=== PATIENT | female | born 1930 | race African-American/Black ===

== ENCOUNTER 2018-08-18 11:05 | Inpatient (IN) | payer MEDICARE, MEDICAID ==
[~2018-08-18] VITALS: Ht 167.6 cm; Wt 87.1 kg
[2018-08-18 14:12] LABS: BASOPHILS % 0.9 % (0.0-2.0); EOSINOPHILS % 0.4 % (0.0-5.0); HEMATOCRIT. 45.9 % (42.0-52.0); HEMOGLOBIN. 15.1 g/dL (14.0-18.0); LYMPHOCYTES % 19.3 % (20.0-50.0); MEAN CORPUSCULAR HEMOGLOBIN 29.3 pg (28.0-32.0); MEAN CORPUSCULAR VOLUME 89.5 fL (80.0-94.0); NEUTROPHILS % 74.4 % (40.0-76.0); PLATELET 224 x1000/uL (130-400); RED BLOOD CELL COUNT 5.13 mill/uL (4.7-6.1); RED CELL DISTRIBUTION WIDTH 13.7 % (11.6-14.6)
[2018-08-18 14:21] LABS: CHLORIDE 106 mEq/L (98-107)
[2018-08-18] MEDS ORDERED: GUAIFENESIN 200MG/10ML SUGAR FREE UDC PO PRN (18:00)
[2018-08-18] MEDS ORDERED: DOCUSATE SODIUM 100MG CAPSULE PO PRN (18:00)
[2018-08-18] MEDS ORDERED: CLONIDINE 0.1MG TABLET PO PRN (18:00)
[2018-08-18] MEDS ORDERED: ACETAMINOPHEN 325MG TABLET PO PRN (18:00)
[2018-08-18] MEDS ORDERED: ONDANSETRON HCL 4MG/2ML INJ IV PRN (18:00)
[2018-08-18] MEDS ORDERED: HYDROCODONE/ACETAMINOPHEN 5/325MG TABLET PO PRN (18:00)
[2018-08-18] MEDS ORDERED: MAGNESIUM/ALUMINUM HYDROXIDE/SIMETHICONE 30ML UDC PO PRN (18:00)
[2018-08-18 20:00] VITALS: BP 129/64
[2018-08-18] MEDS: ENOXAPARIN 30MG/0.3ML SYR SUBCUT SCH (21:00)
[2018-08-18 23:46] LABS: CREATINE KINASE 136 IU/L (39-308)
[2018-08-18 23:47] LABS: CREATINE KINASE MB FRACTION 2.5 ng/mL (0.5-3.6)
[2018-08-19] VITALS (7 sets, daily range): BP systolic 116–153; BP diastolic 45–84
[2018-08-19 06:33] LABS: BASOPHILS % 0.9 % (0.0-2.0); EOSINOPHILS % 1.3 % (0.0-5.0); LYMPHOCYTES % 36.9 % (20.0-50.0); MEAN CORPUSCULAR HEMOGLOBIN 29.6 pg (28.0-32.0); MEAN PLATELET VOLUME 9.1 fl (7.4-10.4); MONOCYTES % 8.7 % (2.0-8.0); NEUTROPHILS % 52.2 % (40.0-76.0); PLATELET 206 x1000/uL (130-400); RED BLOOD CELL COUNT 4.72 mill/uL (4.7-6.1); RED CELL DISTRIBUTION WIDTH 13.9 % (11.6-14.6)
[2018-08-19 06:59] LABS: CHLORIDE 108 mEq/L (98-107)
[2018-08-19 07:10] LABS: CREATINE KINASE 122 IU/L (26-192); HDL CHOLESTEROL 58 mg/dL (40-59)
[2018-08-19 07:11] LABS: LDL CHOLESTEROL 70 mg/dL (5-100)
[2018-08-19] MEDS: AMLODIPINE 10MG TABLET PO SCH (09:51)
[2018-08-19] MEDS: ENOXAPARIN 30MG/0.3ML SYR SUBCUT SCH ×2 (09:51→20:44)
[2018-08-19] MEDS ORDERED: DEXTROSE 50% WATER 50ML SYRINGE IV PRN ×2 (10:15)
[2018-08-19] MEDS: BLOOD SUGAR DIAGNOSTIC STRIP TEST SCH ×3 (12:10→20:45)
[2018-08-19] MEDS: INSULIN LISPRO 100 UNITS/ML SUBCUT SCH ×3 (12:40→20:45)
[2018-08-20] VITALS: BP_SYST 124; BP_SYST 133; BP_SYST 150; BP_DIAS 53; BP_DIAS 58; BP_DIAS 86
[2018-08-20 04:00] VITALS: BP 126/50
[2018-08-20] MEDS: INSULIN LISPRO 100 UNITS/ML SUBCUT SCH ×2 (06:17→12:36)
[2018-08-20] MEDS: BLOOD SUGAR DIAGNOSTIC STRIP TEST SCH ×2 (06:17→12:35)
[2018-08-20 06:47] LABS: BASOPHILS % 0.9 % (0.0-2.0); EOSINOPHILS % 2.7 % (0.0-5.0); HEMATOCRIT. 40.5 % (36.0-48.0); HEMOGLOBIN. 13.4 g/dL (12.0-16.0); LYMPHOCYTES % 43.2 % (20.0-50.0); MEAN CORPUSCULAR HEMOGLOBIN 29.7 pg (28.0-32.0); MEAN CORPUSCULAR VOLUME 89.4 fL (81.0-99.0); MONOCYTES % 9.4 % (2.0-8.0); NEUTROPHILS % 43.8 % (40.0-76.0); PLATELET 204 x1000/uL (130-400); RED BLOOD CELL COUNT 4.53 mill/uL (4.2-5.4); RED CELL DISTRIBUTION WIDTH 13.8 % (11.6-14.6)
[2018-08-20 07:31] LABS: CHLORIDE 106 mEq/L (98-107)
[2018-08-20 07:48] LABS: PHOSPHORUS 2.8 mg/dL (2.5-4.9)
[2018-08-20 08:00] VITALS: BP_SYST 127; BP_SYST 140; BP_SYST 152; BP_DIAS 56; BP_DIAS 65; BP_DIAS 79
[2018-08-20] MEDS: AMLODIPINE 10MG TABLET PO SCH (09:00)
[2018-08-20] MEDS: ENOXAPARIN 30MG/0.3ML SYR SUBCUT SCH (09:01)
[2018-08-20 11:19] VITALS: BP 140/65
== END 2018-08-20 13:30 | disposition home or self-care (01) | DRG 74 ==
LOC: ER 11:05 → 8WST 14:11 → EDSEX 14:11 → ENRESERV 15:36 → CANRESERV 15:36 → ENRESERV 15:39 → SUPCPDRO 17:47
PROVIDERS: ADMIT Hospitalist; ATTEND Hospitalist
DX: G90.8 Other disorders of autonomic nervous system (principal); E11.9 Type 2 diabetes mellitus without complications; M19.90 Unspecified osteoarthritis, unspecified site; I25.10 Atherosclerotic heart disease of native coronary artery without angina pectoris; E66.01 Morbid (severe) obesity due to excess calories; G30.9 Alzheimer's disease, unspecified; F02.80 Dementia in other diseases classified elsewhere, unspecified severity, without behavioral disturbance, psychotic disturbance, mood disturbance, and anxiety; E78.5 Hyperlipidemia, unspecified; J44.9 Chronic obstructive pulmonary disease, unspecified; R79.89 Other specified abnormal findings of blood chemistry; R31.0 Gross hematuria; I11.9 Hypertensive heart disease without heart failure; Z68.31 Body mass index [BMI] 31.0-31.9, adult
CPT/HCPCS: 36415; 71045; 80048; 80061; 82550; 82553; 82962; 83735; 83880; 84100; 84484; 93005; 93306; 93880; 93970; 99285; J1650

== ENCOUNTER 2019-03-07 12:28 | Inpatient (IN) | payer MEDICARE, MEDICAID ==
[~2019-03-07] VITALS: Ht 165.1 cm; Wt 88.5 kg
[2019-03-07] MEDS ORDERED: SODIUM CHLORIDE 0.9% 1,000 ML IV ONE (13:04)
[2019-03-07 14:36] LABS: BASOPHILS % 0.6 % (0.0-2.0); EOSINOPHILS % 0.4 % (0.0-5.0); HEMATOCRIT. 43.8 % (36.0-48.0); HEMOGLOBIN. 14.4 g/dL (12.0-16.0); LYMPHOCYTES % 20.1 % (20.0-50.0); MEAN CORPUSCULAR HEMOGLOBIN 30.2 pg (28.0-32.0); MEAN CORPUSCULAR VOLUME 91.8 fL (81.0-99.0); MEAN PLATELET VOLUME 9.1 fl (7.4-10.4); MONOCYTES % 7.4 % (2.0-8.0); NEUTROPHILS % 71.5 % (40.0-76.0); PLATELET 178 x1000/uL (130-400); RED BLOOD CELL COUNT 4.78 mill/uL (4.2-5.4)
[2019-03-07 14:39] LABS: CHLORIDE 113 mEq/L (98-107)
[2019-03-07] MEDS ORDERED: ASPIRIN 325MG EC TABLET PO ONE (15:30)
[2019-03-07 17:25] LABS: CLARITY URINE TURBID (CLEAR); COLOR URINE ORANGE (YELLOW); KETONES URINE NEGATIVE (NEGATIVE); LEUKOCYTE ESTERASE URINE 3+ (NEGATIVE); NITRITE URINE POSITIVE (NEGATIVE); OCCULT BLOOD URINE 3+ (NEGATIVE); PH URINE 7.5 (4.5-8.0); PROTEIN URINE 2+ (NEGATIVE); SPECIFIC GRAVITY URINE 1.021 (1.005-1.030)
[2019-03-07] MEDS ORDERED: CEFTRIAXONE 1 G PREMIX 50 ML IV ONE (17:45)
[2019-03-07] MEDS ORDERED: HYDRALAZINE 20MG/ML VIAL IV PRN (22:30)
[2019-03-07] MEDS ORDERED: DEXTROSE 50% WATER 50ML SYRINGE IV PRN (22:30)
[2019-03-07] MEDS ORDERED: MAGNESIUM/ALUMINUM HYDROXIDE/SIMETHICONE 30ML UDC PO PRN (22:30)
[2019-03-07] MEDS ORDERED: ONDANSETRON HCL 4MG/2ML INJ IV PRN (22:30)
[2019-03-07] MEDS ORDERED: LORAZEPAM 0.5MG TABLET PO PRN (22:30)
[2019-03-07] MEDS ORDERED: CLONIDINE 0.1MG TABLET PO PRN (22:30)
[2019-03-07] MEDS ORDERED: IPRATROPIUM/ALBUTEROL 0.5-3(2.5)MG/3ML NEB NEB PRN (22:30)
[2019-03-07] MEDS ORDERED: GUAIFENESIN 200MG/10ML SUGAR FREE UDC PO PRN (22:30)
[2019-03-07] MEDS ORDERED: DIPHENHYDRAMINE 50MG/ML VIAL IV PRN (22:30)
[2019-03-07 22:37] VITALS: BP 194/100
[2019-03-08] VITALS: BP 155/63
[2019-03-08] MEDS ORDERED: LEVOFLOXACIN 500MG PREMIX 100 ML IV SCH (01:00)
[2019-03-08] MEDS: ACETAMINOPHEN 325MG TABLET PO PRN ×2 (03:56→08:47)
[2019-03-08 04:00] VITALS: BP 120/78
[2019-03-08] MEDS: SODIUM CHLORIDE 0.9% INJ 3ML FLUSH IVF SCH ×3 (06:00→21:22)
[2019-03-08] MEDS: INSULIN LISPRO 100 UNITS/ML SUBCUT SCH ×4 (06:48→21:00)
[2019-03-08] MEDS: BLOOD SUGAR DIAGNOSTIC STRIP TEST SCH ×4 (06:48→21:22)
[2019-03-08 08:00] VITALS: BP 172/77
[2019-03-08] MEDS: AMLODIPINE 10MG TABLET PO SCH (08:45)
[2019-03-08 12:00] VITALS: BP 141/72
[2019-03-08 16:00] VITALS: BP 141/68
[2019-03-08 20:00] VITALS: BP 162/77
[2019-03-09] VITALS: BP 158/76
[2019-03-09] MEDS ORDERED: LEVOFLOXACIN 250MG PREMIX 50 ML IV SCH (02:00)
[2019-03-09] MEDS: ACETAMINOPHEN 325MG TABLET PO PRN (03:07)
[2019-03-09 04:00] VITALS: BP 159/82
[2019-03-09] MEDS: SODIUM CHLORIDE 0.9% INJ 3ML FLUSH IVF SCH (06:00)
[2019-03-09] MEDS: INSULIN LISPRO 100 UNITS/ML SUBCUT SCH ×3 (07:28→17:40)
[2019-03-09] MEDS: BLOOD SUGAR DIAGNOSTIC STRIP TEST SCH ×3 (07:28→17:10)
[2019-03-09 08:00] VITALS: BP 162/93
[2019-03-09] MEDS: AMLODIPINE 10MG TABLET PO SCH (09:40)
[2019-03-09 12:00] VITALS: BP 147/82
[2019-03-09 16:00] VITALS: BP 115/68
[2019-03-09 16:03] VITALS: BP 115/68
== END 2019-03-09 18:15 | disposition home or self-care (01) | DRG 689 ==
LOC: ER 12:28 → 8WST 16:33 → EDBEDREQTM 16:37 → ENRESERV 20:01
PROVIDERS: ADMIT Internal Medicine; ATTEND Internal Medicine
DX: N39.0 Urinary tract infection, site not specified (principal); G93.41 Metabolic encephalopathy; E11.9 Type 2 diabetes mellitus without complications; E78.00 Pure hypercholesterolemia, unspecified; F03.90 Unspecified dementia, unspecified severity, without behavioral disturbance, psychotic disturbance, mood disturbance, and anxiety; I10 Essential (primary) hypertension; Z88.0 Allergy status to penicillin
CPT/HCPCS: 36415; 71045; 81003; 82962; 83036; 83880; 84443; 84484; 93005; 93970; 96361; 96365; 97162; 97166; 99285; J0360; J0696; J1956; J7030

== ENCOUNTER 2020-07-25 14:19 | Inpatient (IN) | payer MEDICARE, MEDICAID ==
[~2020-07-25] VITALS: Ht 165.1 cm; Wt 90.3 kg
[2020-07-25] MEDS ORDERED: METHYLPREDNISOLONE SOD SUCC 125 MG/2 ML VIAL IV STA (14:24)
[2020-07-25] MEDS ORDERED: IPRATROPIUM BROMIDE (0.02%) 0.5MG/2.5ML NEB HHN STA (14:24)
[2020-07-25] MEDS ORDERED: MAGNESIUM 2 G PREMIX 50 ML IV ONE (14:30)
[2020-07-25] MEDS: ALBUTEROL (0.083%) 2.5MG/3ML NEB HHN SCH ×3 (14:43→14:46)
[2020-07-25 14:57] LABS: HEMATOCRIT. 36.9 % (36.0-48.0); HEMOGLOBIN. 11.7 g/dL (12.0-16.0); MEAN CORPUSCULAR HEMOGLOBIN 28.4 pg (28.0-32.0); PLATELET 180 x1000/uL (130-400); RED CELL DISTRIBUTION WIDTH 15.4 % (11.6-14.6)
[2020-07-25 15:07] LABS: CHLORIDE 107 mEq/L (98-107); INR 1.1; PROTHROMBIN TIME 11.4 sec (9.6-11.0)
[2020-07-25] MEDS ORDERED: VANCOMYCIN 1 G PREMIX 200 ML IV ONE (15:15)
[2020-07-25] MEDS ORDERED: LEVOFLOXACIN 750MG PREMIX 150 ML IV ONE (15:15)
[2020-07-25] MEDS ORDERED: INSULIN REGULAR (HUMULIN R) 300UNITS/3ML VIAL IV NR (15:30)
[2020-07-25] MEDS ORDERED: SODIUM CHLORIDE 0.9% 1000ML BAG (SEPSIS BOLUS) IV ONE (15:30)
[2020-07-25] MEDS ORDERED: DEXTROSE 50% WATER 50ML SYRINGE IV NR (15:30)
[2020-07-25 16:29] LABS: PLATELET ESTIMATE NORMAL
[2020-07-25] MEDS ORDERED: DOCUSATE SODIUM 100MG CAPSULE PO PRN (18:30)
[2020-07-25] MEDS ORDERED: ONDANSETRON HCL 4MG/2ML INJ IV PRN (18:30)
[2020-07-25] MEDS ORDERED: ACETAMINOPHEN 325MG TABLET PO PRN (18:30)
[2020-07-25] MEDS ORDERED: GUAIFENESIN 200MG/10ML SUGAR FREE UDC PO PRN (18:30)
[2020-07-25] MEDS ORDERED: IPRATROPIUM/ALBUTEROL 0.5-3(2.5)MG/3ML NEB NEB PRN (18:30)
[2020-07-25] MEDS ORDERED: CLONIDINE 0.1MG TABLET PO PRN (18:30)
[2020-07-25 18:56] LABS: BG CARBOXYHEMOGLOBIN 0.3 % (0.5-1.5); BG DEOXYHEMOGLOBIN 0.4 % (0.0-5.0); BG FRACTION INSPIRED OXYGEN 100; BG HCO3 ACT 19.4 mmol/L (22.0-26.0); BG METHEMOGLOBIN 0.2 % (0.0-1.5); BG OXYGEN SATURATION 99.6 % (92.0-98.5); BG OXYHEMOGLOBIN 99.1 % (94.0-97.0); BG PCO2 29.8 mmHg (35.0-45.0); BG PH 7.431 (7.350-7.450); BG PO2 447.4 mmHg (75.0-100.0); BG SAMPLE SITE RIGHT RADIAL; BG TOTAL HEMOGLOBIN 11.2 g/dL (12.0-18.0); BG VENT MODE MASK - BIPAP
[2020-07-25] MEDS ORDERED: SODIUM POLYSTYRENE SULFONATE 15 G/60 ML BOT PO NR (19:00)
[2020-07-25] MEDS ORDERED: ENOXAPARIN 40MG/0.4ML SYR SUBCUT SCH (20:00)
[2020-07-25] MEDS: FUROSEMIDE 40MG/4ML VIAL IVP SCH (20:13)
[2020-07-25] MEDS: METHYLPREDNISOLONE SOD SUCC 125 MG/2 ML VIAL IV SCH (20:14)
[2020-07-25] MEDS: IPRATROPIUM/ALBUTEROL 0.5-3(2.5)MG/3ML NEB HHN SCH (20:33)
[2020-07-25 23:34] VITALS: BP 135/66
[2020-07-26] VITALS: BP 135/56
[2020-07-26] MEDS: IPRATROPIUM/ALBUTEROL 0.5-3(2.5)MG/3ML NEB HHN SCH ×4 (00:57→20:47)
[2020-07-26 04:00] VITALS: BP 145/65
[2020-07-26] MEDS: METHYLPREDNISOLONE SOD SUCC 125 MG/2 ML VIAL IV SCH ×3 (05:19→21:56)
[2020-07-26] MEDS ORDERED: DEXTROSE 50% WATER 50ML SYRINGE IV PRN (06:45)
[2020-07-26 06:53] LABS: HEMATOCRIT. 33.2 % (36.0-48.0); HEMOGLOBIN. 10.5 g/dL (12.0-16.0); MEAN CORPUSCULAR VOLUME 88.4 fL (81.0-99.0); MEAN PLATELET VOLUME 7.8 fl (7.4-10.4); PLATELET 173 x1000/uL (130-400); RED BLOOD CELL COUNT 3.75 mill/uL (4.2-5.4); RED CELL DISTRIBUTION WIDTH 15.3 % (11.6-14.6)
[2020-07-26 07:02] LABS: CHLORIDE 109 mEq/L (98-107)
[2020-07-26] MEDS: BLOOD SUGAR DIAGNOSTIC STRIP TEST SCH ×4 (07:20→20:52)
[2020-07-26] MEDS: INSULIN LISPRO 100 UNITS/ML SUBCUT SCH ×4 (07:32→20:52)
[2020-07-26 08:00] VITALS: BP 134/62
[2020-07-26] MEDS: FUROSEMIDE 40MG/4ML VIAL IVP SCH (09:31)
[2020-07-26 12:00] VITALS: BP 127/65
[2020-07-26 14:09] LABS: PLATELET ESTIMATE NORMAL
[2020-07-26] MEDS: DEXT 5%/0.45% NACL 1000ML 1,000 ML IV SCH (15:00)
[2020-07-26 16:00] VITALS: BP 136/63
[2020-07-26] MEDS ORDERED: LEVOFLOXACIN 500MG PREMIX 100 ML IV SCH (16:00)
[2020-07-26] MEDS: ENOXAPARIN 30MG/0.3ML SYR SUBCUT SCH (16:17)
[2020-07-26] MEDS: METRONIDAZOLE 500 MG PREMIX 100 ML IV SCH (16:18)
[2020-07-26 20:00] VITALS: BP 144/64
[2020-07-27] VITALS: BP 140/67
[2020-07-27] MEDS: IPRATROPIUM/ALBUTEROL 0.5-3(2.5)MG/3ML NEB HHN SCH ×4 (01:09→21:28)
[2020-07-27] MEDS: METRONIDAZOLE 500 MG PREMIX 100 ML IV SCH ×3 (02:23→18:07)
[2020-07-27 04:00] VITALS: BP 138/62
[2020-07-27] MEDS: METHYLPREDNISOLONE SOD SUCC 125 MG/2 ML VIAL IV SCH (05:37)
[2020-07-27] MEDS: BLOOD SUGAR DIAGNOSTIC STRIP TEST SCH ×4 (05:38→21:07)
[2020-07-27 06:55] LABS: HEMATOCRIT. 30.5 % (36.0-48.0); HEMOGLOBIN. 9.7 g/dL (12.0-16.0); MEAN CORPUSCULAR HEMOGLOBIN 28.2 pg (28.0-32.0); MEAN CORPUSCULAR VOLUME 88.5 fL (81.0-99.0); PLATELET 189 x1000/uL (130-400); RED BLOOD CELL COUNT 3.45 mill/uL (4.2-5.4); RED CELL DISTRIBUTION WIDTH 15.2 % (11.6-14.6)
[2020-07-27 07:26] LABS: CHLORIDE 111 mEq/L (98-107)
[2020-07-27] MEDS: DEXT 5%/0.45% NACL 1000ML 1,000 ML IV SCH ×2 (07:40→14:10)
[2020-07-27] MEDS: INSULIN LISPRO 100 UNITS/ML SUBCUT SCH ×4 (07:50→21:00)
[2020-07-27 08:27] VITALS: BP 127/78
[2020-07-27] MEDS: FUROSEMIDE 40MG/4ML VIAL IVP SCH (09:15)
[2020-07-27] MEDS: ENOXAPARIN 30MG/0.3ML SYR SUBCUT SCH (09:16)
[2020-07-27] MEDS ORDERED: METHYLPREDNISOLONE SOD SUCC 40 MG/ML VIAL IV SCH (11:30)
[2020-07-27] MEDS: LEVOFLOXACIN 750MG PREMIX 150 ML IV SCH (12:05)
[2020-07-27 12:08] VITALS: BP 159/81
[2020-07-27 14:31] LABS: PLATELET ESTIMATE NORMAL
[2020-07-27 16:10] VITALS: BP 153/77
[2020-07-27] MEDS: METHYLPREDNISOLONE SOD SUCC 40 MG/ML VIAL IV SCH (18:07)
[2020-07-27 20:36] VITALS: BP 154/60
[2020-07-28 00:45] VITALS: BP 164/63
[2020-07-28] MEDS: METRONIDAZOLE 500 MG PREMIX 100 ML IV SCH ×3 (01:48→17:47)
[2020-07-28] MEDS: IPRATROPIUM/ALBUTEROL 0.5-3(2.5)MG/3ML NEB HHN SCH ×4 (02:02→21:33)
[2020-07-28 04:00] VITALS: BP 156/65
[2020-07-28 06:23] LABS: HEMATOCRIT. 31.3 % (36.0-48.0); HEMOGLOBIN. 10.2 g/dL (12.0-16.0); MEAN CORPUSCULAR HEMOGLOBIN 28.5 pg (28.0-32.0); MEAN CORPUSCULAR VOLUME 87.8 fL (81.0-99.0); MEAN PLATELET VOLUME 7.8 fl (7.4-10.4); PLATELET 187 x1000/uL (130-400); RED BLOOD CELL COUNT 3.57 mill/uL (4.2-5.4); RED CELL DISTRIBUTION WIDTH 15.2 % (11.6-14.6)
[2020-07-28] MEDS: METHYLPREDNISOLONE SOD SUCC 40 MG/ML VIAL IV SCH (06:23)
[2020-07-28 06:27] LABS: CHLORIDE 113 mEq/L (98-107)
[2020-07-28 06:33] LABS: PHOSPHORUS 3.6 mg/dL (2.5-4.9)
[2020-07-28] MEDS: BLOOD SUGAR DIAGNOSTIC STRIP TEST SCH ×4 (07:27→21:27)
[2020-07-28] MEDS: INSULIN LISPRO 100 UNITS/ML SUBCUT SCH ×4 (07:50→21:00)
[2020-07-28 08:13] VITALS: BP 176/86
[2020-07-28] MEDS: FUROSEMIDE 40MG/4ML VIAL IVP SCH (09:14)
[2020-07-28] MEDS: ENOXAPARIN 30MG/0.3ML SYR SUBCUT SCH (09:15)
[2020-07-28 12:28] VITALS: BP 132/87
[2020-07-28 13:00] LABS: PLATELET ESTIMATE NORMAL
[2020-07-28 16:21] VITALS: BP 141/78
[2020-07-28 17:04] LABS: CLARITY URINE CLOUDY (CLEAR); COLOR URINE YELLOW (YELLOW); KETONES URINE NEGATIVE (NEGATIVE); LEUKOCYTE ESTERASE URINE 3+ (NEGATIVE); NITRITE URINE NEGATIVE (NEGATIVE); OCCULT BLOOD URINE 2+ (NEGATIVE); PROTEIN URINE NEGATIVE (NEGATIVE); SPECIFIC GRAVITY URINE 1.017 (1.005-1.030); UROBILINOGEN URINE 0.2 E.U./dL (0.2-1.0)
[2020-07-28] MEDS: PREDNISONE 20MG TABLET PO SCH (17:47)
[2020-07-28 20:28] VITALS: BP 148/76
[2020-07-29] VITALS (7 sets, daily range): BP systolic 148–188; BP diastolic 74–111
[2020-07-29] MEDS: IPRATROPIUM/ALBUTEROL 0.5-3(2.5)MG/3ML NEB HHN SCH ×3 (01:56→13:00)
[2020-07-29] MEDS: METRONIDAZOLE 500 MG PREMIX 100 ML IV SCH ×2 (02:51→09:38)
[2020-07-29] MEDS: BLOOD SUGAR DIAGNOSTIC STRIP TEST SCH ×2 (06:42→13:12)
[2020-07-29] MEDS: INSULIN LISPRO 100 UNITS/ML SUBCUT SCH ×2 (07:44→12:50)
[2020-07-29] MEDS: PREDNISONE 20MG TABLET PO SCH (09:37)
[2020-07-29] MEDS: ENOXAPARIN 30MG/0.3ML SYR SUBCUT SCH (09:38)
[2020-07-29] MEDS: LEVOFLOXACIN 750MG PREMIX 150 ML IV SCH (11:33)
== END 2020-07-29 18:06 | disposition home health service (06) | DRG 871 ==
LOC: ER 14:19 → 6WST 16:46 → EDBEDREQ 16:53 → EDBEDREQTM 16:53 → EDBEDREQSVC 20:51 → ENRESERV 21:45
PROVIDERS: ADMIT Hospitalist; ATTEND Hospitalist
PROC: 5A09457 Assistance with Respiratory Ventilation, 24-96 Consecutive Hours, Continuous Positive Airway Pressure (ICD-10-PCS; principal; 2020-07-25)
DX: A41.9 Sepsis, unspecified organism (principal); J96.01 Acute respiratory failure with hypoxia; E43 Unspecified severe protein-calorie malnutrition; J69.0 Pneumonitis due to inhalation of food and vomit; G92 Toxic encephalopathy; I50.30 Unspecified diastolic (congestive) heart failure; N17.9 Acute kidney failure, unspecified; N39.0 Urinary tract infection, site not specified; I11.0 Hypertensive heart disease with heart failure; E78.5 Hyperlipidemia, unspecified; E11.9 Type 2 diabetes mellitus without complications; R13.10 Dysphagia, unspecified; F03.90 Unspecified dementia, unspecified severity, without behavioral disturbance, psychotic disturbance, mood disturbance, and anxiety; R74.01 Elevation of levels of liver transaminase levels; E87.5 Hyperkalemia; R65.20 Severe sepsis without septic shock; Z68.33 Body mass index [BMI] 33.0-33.9, adult; Z88.0 Allergy status to penicillin
CPT/HCPCS: 36415; 36600; 71045; 80053; 81003; 82375; 82805; 82962; 83036; 83605; 83735; 83880; 84100; 84145; 84484; 85025; 92610; 93005; 93306; 93970; 94640; 94660; 97162; 97166; 97530; 99291; J1650; J1815; J1940; J1956; J2920; J2930; J3370; J3475; J3490; J7512; A4315